=== PATIENT | female | born 1995 | race Caucasian/White ===

== ENCOUNTER 2018-02-25 12:59 | Emergency (ER) | payer BC, OTHER ==
[~2018-02-25] VITALS: Ht 165.1 cm; Wt 59.1 kg
[~2018-02-25 12:59] MED LIST: CYCL-1 PO
[2018-02-25 13:00] VITALS: BP 112/71
[2018-02-25] MEDS ORDERED: ketorolac trometh inj. 60 MG/2 ML VIAL IM ONE (13:50)
[2018-02-25] MEDS ORDERED: NAPR-56 PO (13:52)
[2018-02-25] MEDS ORDERED: CYCL-1 PO (13:52)
== END 2018-02-25 14:27 | disposition home or self-care (01) ==
LOC: ER 13:00
DX: M54.42 Lumbago with sciatica, left side (principal); Z79.899 Other long term (current) drug therapy
CPT/HCPCS: 96372; 99283; J1885

== ENCOUNTER 2018-03-13 11:04 | Emergency (ER) | payer OTHER, BC ==
[~2018-03-13] VITALS: Ht 165.1 cm; Wt 59.1 kg
[~2018-03-13 11:04] MED LIST changes: +NAPR-56 PO
[2018-03-13] MEDS ORDERED: ketorolac tromethamine 15mg/ml inj. IM ONE (11:40)
[2018-03-13] MEDS ORDERED: ONDA4TAB12 PO (12:16)
[2018-03-13] MEDS ORDERED: HYDR-3965 PO (12:16)
[2018-03-13] MEDS ORDERED: IBUP-1985 PO (12:16)
[2018-03-13 12:30] VITALS: BP 124/74
== END 2018-03-13 12:32 | disposition home or self-care (01) ==
LOC: ER 11:05
DX: S16.1XXA Strain of muscle, fascia and tendon at neck level, initial encounter (principal); Z79.899 Other long term (current) drug therapy; V49.49XA Driver injured in collision with other motor vehicles in traffic accident, initial encounter; Y93.89 Activity, other specified; Y92.89 Other specified places as the place of occurrence of the external cause; Y99.8 Other external cause status
CPT/HCPCS: 72040; 96372; 99284; J1885; L0172